=== PATIENT | male | born 1945 | race American Indian/Alaskan Native ===

== ENCOUNTER 2016-08-14 12:43 | Emergency (ER) | payer MEDICARE, OTHER ==
[2016-08-14 13:30] VITALS: BP 107/66
--- NOTE | 2016-08-14 14:13 | Emergency Department Report ---
Chief Complaint: Nausea/Vomiting/Diarrhea Stated Complaint: NAUSEA/VOMITING Time Seen by Provider: 08/14/16 14:09 - HPI History of Present Illness: C10-year-old male comes in for nausea vomiting and dizziness. His past medical history of hypertension with recent adjustment to hypertensive medicine. Patient reports that he vomited 4 times feels like maybe bit better. He reports that his dizziness more lightheadedness. Since medication is Lotrel 10/ 40 and hydralazine 50 mg twice a day. She reports that he was recently at the [facility] for dehydration about 2 weeks ago. Patient does report he had a three-vessel bypass with the saphenous vein grafted. - Exam Vital Signs: Vital Signs 08/14/16 13:25 Temperature 97.7 F Pulse Rate 73 Respiratory 16 Rate Blood Pressure 107/66 O2 Sat by Pulse 99 Oximetry MSE screening note: Focused history and physical exam performed. Due to findings the following was ordered: ED Disposition for MSE Condition: Stable
[2016-08-14 14:52] LABS: Hematocrit 44.8 % (35.5-45.6); Hemoglobin 14.3 gm/dl (11.8-15.2); Mean Corpuscular HGB Conc 32 % (32-34); Mean Corpuscular Hemoglobin 28 pg (28-32); Mean Corpuscular Volume 86 fl (84-94); Platelet Count 269 K/mm3 (140-440); Red Blood Count 5.18 M/mm3 (3.65-5.03); Red Cell Distribution Width 13.7 % (13.2-15.2); White Blood Count 10.3 K/mm3 (4.5-11.0)
[2016-08-14 15:05] LABS: Anion Gap 20 mmol/L; Blood Urea Nitrogen 11 mg/dL (9-20); Calcium 9.1 mg/dL (8.4-10.2); Carbon Dioxide 23 mmol/L (22-30); Glucose 135 mg/dL (75-100); Potassium 4.4 mmol/L (3.6-5.0); Sodium 142 mmol/L (137-145)
--- NOTE | 2016-08-16 18:29 | ED Elopement Review ---
ED Pt Elopement review - Results review Lab results: Laboratory Tests 08/14/16 08/14/16 14:29 14:29 WBC 10.3 RBC 5.18 H Hgb 14.3 Hct 44.8 MCV 86 MCH 28 MCHC 32 RDW 13.7 Plt Count 269 Sodium 142 Potassium 4.4 Chloride 103.0 Carbon Dioxide 23 Anion Gap 20 BUN 11 Creatinine 1.0 Estimated GFR > 60 BUN/Creatinine Ratio 11.00 Glucose 135 H Calcium 9.1 - Call Back decision Pt Call Back Decision: Pt to F/U with PMD
== END 2016-08-14 23:05 | disposition left against medical advice (07) ==
LOC: ED 12:43
DX: R11.2 Nausea with vomiting, unspecified (principal); R42 Dizziness and giddiness; I10 Essential (primary) hypertension; Z53.21 Procedure and treatment not carried out due to patient leaving prior to being seen by health care provider
CPT/HCPCS: 36415; 80048; 85027